=== PATIENT | female | born 1995 | race Caucasian/White ===

== ENCOUNTER 2025-01-16 09:50 | Emergency (ER) | payer MEDICAID, SELFPAY ==
[2025-01-16 09:50] VITALS: BMI 18.4
[2025-01-16 10:08] VITALS: BP 109/70; PULSE 76; RESP 16; TEMP 36.8; O2SAT 98
--- NOTE | 2025-01-16 10:19 | PD.EDSKIN ---
ED Skin Abcess FB-RME/HPI General Chief complaint: Skin/Abscess/Foreign Body Stated complaint: RASH x 1 WEEK Time Seen by Provider: 01/16/25 10:02 Arrival date/time: 01/16/25 09:50 This is a 29-year-old female comes into the emergency room with complaints of rash that she had initially that started in her upper arms mainly around the antecubital area then this morning spread to her chest and her neck. Patient states she has no new products that she is on her skin no new detergents shampoos. Patient was not exposed to anything abnormal per patient patient has no trouble breathing. Patient has no other complaints. Patient just feels itchy. Related Data Home Medications ?Medication ?Instructions ?Recorded ?Confirmed [id number] 1 mg 1 tab PO QDAY 05/15/22 05/15/22 tablet Previous Rx's ?Medication ?Instructions ?Recorded docusate sodium 100 mg capsule 100 mg PO BID #60 caps 05/18/22 (Colace) hydrocodone 5 mg-acetaminophen 325 1 tab PO Q6H PRN pain #30 tabs 05/18/22 mg tablet lanolin 50 % topical ointment 1 applic topical TID PRN skin 05/18/22 irritation #15 tubes diphenhydramine HCl 25 mg tablet 50 mg (2 x 25 mg) PO Q8H allergic 01/16/25 reaction #30 tabs famotidine 20 mg tablet 20 mg PO QDAY #14 tabs 01/16/25 Allergies Allergy/AdvReac Type Severity Reaction Status Date / Time No Known Allergies Allergy Verified 01/16/25 09:51 Review of Systems Review of Systems Systems Reviewed: All systems reviewed, normal except as documented Past Medical History Surgical History SURGICAL: Negative Section ED Exam Narrative Physical exam: VITAL SIGNS: Reviewed. GENERAL APPEARANCE: Alert and interactive, follows commands, no acute distress, HEAD AND FACE: Non-traumatic. ENT: PERRL, conjuctiva pink and clear, eyelid no trauma, Mucous membrane moist. NECK: Supple, nontender, no nuchal rigidity. CHEST: No tenderness, no crepitus, no paradoxical movement, no retractions. LUNGS: Clear, well ventilated, symmetric, no rales, no wheezing, no rhonchi, no stridor, good breath sounds bilaterally. HEART: Regular rate, regular rhythm, no murmur, no gallops. ABDOMEN: Soft, nondistended, no guarding, nontender NEUROLOGICAL: Gross motor function intact sensory function intact, Appropriate for age. MUSCULOSKELETAL: low back nontender, full range of motion. EXTREMITIES: No redness no swelling no skin breakdown on bilateral foot and leg. Distal neurovascular status intact bilateral foot SKIN: Color pink, dry, mildly raised erythemic pactches to chest neck and arms Course Quality Measures none Orders Category Date Time Status Strep A Rapid Stat Lab 01/16/25 10:22 Completed Dexamethasone Inj [Decadron Inj] Med 01/16/25 11:45 Discontinued 10 mg PO X1 ONE DiphenhydrAMINE [Benadryl] Med 01/16/25 10:19 Discontinued 50 mg PO X1 ONE Famotidine [Pepcid] Med 01/16/25 10:19 Discontinued 20 mg PO X1 ONE Vital Signs Vital signs: Vital Signs Temperature 98.2 F 01/16/25 10:08 Pulse Rate 76 01/16/25 10:08 Respiratory Rate 16 01/16/25 10:08 Blood Pressure 109/70 01/16/25 10:08 Pulse Oximetry (%) 98 01/16/25 10:08 Oxygen Delivery Method Room Air 01/16/25 10:08 Skin / Abscess / Foreign Body MDM Narrative MDM Narrative:: Patient was given Benadryl and Pepcid. Patient still complains of feeling itchy but the rash does look slightly less raised. Will treat patient as an outpatient with Benadryl and Pepcid. I will give her a one-time dose of Decadron here. Patient told to follow-up with primary provider in 1 to 2 days. Come back to emergency room symptoms change or worsen. Dragon dictation: Although this document has been carefully reviewed, there may still be some phonetic and other typographical errors. These errors are purely grammatical due to imperfections in the software program and should not be construed in any way to compromise the substance of the patient's medical care during this visit. Patient data External records reviewed:: [facility] [place] previous records Clinical information provided by:: patient Social determinants that could affect healthcare access:: none Patient has the following chronic illnesses:: none How is presenting disease/condition affected by chronic disease/condition?: no chronic disease Evaluation data The following diagnostics were reviewed and interpreted by me:: other (specify) (none) Lab and/or radiology exams considered but not ordered:: see note Interpretation Summary: see note Medications / Prescriptions Medications or Prescriptions considered but not ordered:: none Medication administrations:: Medication Administration History Discontinued Medications Dexamethasone Sodium Phosphate (Dexamethasone Sod Phos Inj 10 Mg/Ml Vial) 10 mg PO X1 ONE Stop: 01/16/25 11:46 Last Admin: 01/16/25 11:50 Dose: 10 mg Documented By: Diphenhydramine HCl (Diphenhydramine 25 Mg Capsule) 50 mg PO X1 ONE Stop: 01/16/25 10:20 Last Admin: 01/16/25 10:29 Dose: 50 mg Documented By: CN Famotidine (Famotidine 20 Mg Tablet) 20 mg PO X1 ONE Stop: 01/16/25 10:20 Last Admin: 01/16/25 10:29 Dose: 20 mg Documented By: CN see note Consultations Consultation(s) initiated? (list below): No Diagnosis Skin/Abscess Differential Diagnosis: abscess of skin or subcutaneous tissue, viral exanthem, allergic reaction to drug, cellulitis, eczema and contact dermatitis Most likely diagnosis given after review of the tests above:: allergic reaction Admission Indicated Admission indicated?: not indicated Admission Request Was there a request for admission?: No Disposition Plan Disposition Plan: Discharge Discharge Attestation Discharge Attestation: The patient and all family members were given an opportunity to ask questions and understood the discharge instructions. Discharge instructions specifically effects, indications for sooner follow up or return to the emergency department, and the expected course of current diagnosis. Patient condition: Stable Discharge Plan Plan Patient Disposition: HOME (Self Care) Prescriptions/Referrals Prescriptions/Med Rec: New famotidine 20 mg tablet 20 mg PO QDAY Qty: 14 0RF diphenhydramine HCl 25 mg tablet 50 mg PO Q8H Qty: 30 0RF No Action [id number] 1 mg Tablet 1 tab PO QDAY hydrocodone-acetaminophen 5-325 mg tablet 1 tab PO Q6H MDD 6 PRN (Reason: pain) Qty: 30 0RF docusate sodium [Colace] 100 mg capsule 100 mg PO BID Qty: 60 0RF lanolin 50 % ointment 1 applic topical TID PRN (Reason: skin irritation) Qty: 15 0RF Referrals: Gabriele Alvarez MD [Primary Care Provider, Family Practice] - In 1 week Problem List Clinical Impression: Rash, Allergic reaction Patient/Caregiver Discharge Instructions Discharge Activity: activity as tolerated Education Materials: ED Medicine Reaction: Allergic Additional Instructions: Follow up with primary provider in 1-2 days. Come back to ED if symptoms change or worsen Print Language: Bur[place]ian Stand Alone Forms: Thelma Award Info., Patient Portal Info Letter PA/SUBSTATION MAINTENANCE TECHNICIAN Supervising Physician PA/SUBSTATION MAINTENANCE TECHNICIAN Supervising Physician: [email or web address]
[2025-01-16] MEDS: FAMOTIDINE 20 MG TABLET PO (10:29)
[2025-01-16 11:20] LABS: Strep A Rapid Negative (Negative)
[2025-01-16] MEDS: DEXAMETHASONE SOD PHOS INJ 10 MG/ML VIAL PO (11:50)
== END 2025-01-16 12:01 | disposition home or self-care (01) ==
PROVIDERS: Nurse Practitioner Family; Emergency Provider Emergency Medicine; PCP Family Medicine
DX: T78.40XA Allergy, unspecified, initial encounter (principal); X58.XXXA Exposure to other specified factors, initial encounter
CPT/HCPCS: 87651; 99283; J1100; A9270